=== PATIENT | female | born 1935 | race Caucasian/White ===

== ENCOUNTER 2016-12-07 12:05 | Emergency (ER) | payer MEDICARE, BC ==
[2016-12-07 12:20] VITALS: BP 138/57
[2016-12-07] MEDS ORDERED: Acetaminophen/HYDROcodone 325-5 MG Tab PO ONE (12:44)
--- NOTE | 2016-12-07 12:46 | EDM.PDOC ---
ED HPI GENERAL MEDICAL PROBLEM - General Chief Complaint: Chest Pain Stated Complaint: CHEST PAIN Time Seen by Provider: 12/07/16 12:31 Source of Information: Reports: Patient History Limitations: Reports: No Limitations - History of Present Illness INITIAL COMMENTS - FREE TEXT/NARRATIVE: Patient is a 81-year-old female who presents ED complaining of right-sided rib pain. Patient states yesterday she lost her balance with emptying the garbage. She fell against a brick wall causing some superficial abrasions to her hand and elbow on the right side. During the process she fell landing on the right side of her chest. Pain is constant with waxing waning in intensity. Described as a ache with intermittent sharpness. Pain is worsen with movement, deep breath , and palpation. She has been taking Tylenol and aspirin with little relief. She denies head neck or back pain, loss of conscious, numbness or tingling, short of breath, abdominal pain, nausea/vomiting, or any additional complaints. Treatments [employer]: Reports: Acetaminophen Right Chest Pain Score (Numeric/FACES): 6 - Related Data Allergies Allergy/AdvReac Type Severity Reaction Status Date / Time ibuprofen Allergy Rash Verified 12/07/16 12:21 Home Meds: Home Meds Alendronate [Fosamax] 70 mg PO Q7D 11/04/13 [History] Ca Cmb No.1/Vit D3/B-6/FA/B12 [Vitamin D3 1,000 Unit] 1 tab PO DAILY 11/04/13 [ History] Calcium Carb & Citrate/Vit D3 [Calcium + Vitamin D3 Caplet] 1,500 mg PO BID 04/19 [History] Multivit-Min/FA/Lycopene/Lut [Centrum Silver] 1 tab PO DAILY 11/04/13 [History] Raloxifene [Evista] 60 mg PO BEDTIME 11/04/13 [History] cycloSPORINE [Restasis] 1 drop EYEBOTH BID 11/04/13 [History] traMADol [Ultram] 50 mg PO Q4H PRN #20 tablet 12/07/16 [Rx] Past Medical History - Past Health History Medical/Surgical History: Denies Medical/Surgical History Musculoskeletal History: Reports: Osteoporosis Social & Family History - Tobacco Use Smoking Status *Q: Never Smoker Second Hand Smoke Exposure: No - Alcohol Use Days Per Week of Alcohol Use: 1 Number of Drinks Per Day: 1 Total Drinks Per Week: 1 - Recreational Drug Use Recreational Drug Use: No Drug Use in Last 12 Months: No ED ROS GENERAL - Review of Systems Review Of Systems: ROS reveals no pertinent complaints other than HPI. ED EXAM, GENERAL - Physical Exam Exam: See Below Exam Limited By: No Limitations General Appearance: Alert, WD/WN, No Apparent Distress Ears: Hearing Grossly Normal Nose: Normal Inspection Throat/Mouth: Normal Voice, No Airway Compromise Neck: Normal Inspection, Supple, Non-Tender, Full Range of Motion Respiratory/Chest: No Respiratory Distress, Lungs Clear, Normal Breath Sounds, No Accessory Muscle Use, Other (Tenderness to the righ axilla along the 9-12 ribs. ) Cardiovascular: Normal Peripheral Pulses, Regular Rate, Rhythm Peripheral Pulses: 2+: Radial (R) GI/Abdominal: Normal Bowel Sounds, Soft, Non-Tender, No Organomegaly, No Distention Back Exam: Normal Inspection, Full Range of Motion. No: Paraspinal Tenderness, Vertebral Tenderness Extremities: Normal Inspection, Normal Range of Motion, Non-Tender, No Pedal Edema, Normal Capillary Refill Neurological: Alert, Oriented, CN II-XII Intact, Normal Cognition, No Motor/ Sensory Deficits Psychiatric: Normal Affect, Normal Mood Skin Exam: Warm, Dry, Intact, Normal Color. No: Ecchymosis Course - Vital Signs Last Recorded V/S: Last Vital Signs Temp 98.5 F 12/07/16 12:18 Pulse 78 12/07/16 12:18 Resp 18 12/07/16 12:18 BP 138/57 L 12/07/16 12:18 Pulse Ox 100 12/07/16 12:18 - Orders/Labs/Meds Orders: Active Orders 24 hr Category Date Time Status Ribs 2V w Chest Rt [CR] Stat Exams 12/07/16 12:44 Taken Meds: Medications Discontinued Medications Generic Name Dose Route Start Last Admin Trade Name Freq PRN Reason Stop Dose Admin Hydrocodone Bitart/Acetaminophen 1 tab 12/07/16 12:44 12/07/16 12:51 [place] 325-5 Mg PO 12/07/16 12:45 1 tab ONETIME ONE Administration - Re-Assessments/Exams Free Text/Narrative Re-Assessment/Exam: Will obtain ribs series right side. Ordered norco 5-325mg PO x 1 for pain. 09/03/17 13:[address] Simmons. No acute findings present. Final interpretation pending. Pain has improved with the above therapies. Discharged home with instructions as documented. Departure - Departure Time of Disposition: 13:50 Disposition: Home, Self-Care 01 Condition: Good Clinical Impression: Right-sided chest wall pain - Discharge Information Prescriptions: traMADol [Ultram] 50 mg PO Q4H PRN #20 tablet PRN Reason: Pain (Severe 7-10) Referrals: Clarence Tucker Jr, MD [Primary Care Provider] - Forms: ED Department Discharge Additional Instructions: X-ray of the right ribs did not reveal any acute bony abnormalities. Etiology current complaint is a contusion thus requires symptomatically treatment only. This includes: Ice to affected area 4 times daily, 20 minutes in duration, do not place ice directly on the skin. Starting tomorrow can alternate this with warm compresses. Refrain from any activities that cause worsening pain. Continue to take deep breaths on intermittent basis. For pain take tramadol 40 mg every 4-6 hours with Tylenol 650 mg. Follow-up with PCP as needed. Return to ED for any new or worsening symptoms. - My Orders Last 24 Hours: My Active Orders 12/07/16 12:44 Ribs 2V w Chest Rt [CR] Stat - Assessment/Plan Last 24 Hours: My Active Orders 12/07/16 12:44 Ribs 2V w Chest Rt [CR] Stat
--- NOTE | 2016-12-08 17:59 | CR ---
Chest and right ribs: Frontal view of the chest was obtained as well as 3 views of the right ribs. Comparison: No prior chest x-ray Heart size is normal. Tortuous thoracic aorta is seen. Lungs are clear with no acute infiltrates. Slight scoliosis is present within the spine. No discrete right sided rib abnormality is seen. Impression: 1. Incidental findings. Nothing acute is identified on frontal chest x-ray. No discrete rib abnormality is seen although nondisplaced rib fracture could easily be missed. Diagnostic code #2
== END 2016-12-07 14:05 | disposition home or self-care (01) ==
LOC: JD.ED 12:05
DX: R07.89 Other chest pain (principal); Z88.6 Allergy status to analgesic agent; Z79.899 Other long term (current) drug therapy
CPT/HCPCS: 71101; 99284; A9270; 99283

== ENCOUNTER 2017-12-23 10:45 | Emergency (ER) | payer MEDICARE, BC ==
--- NOTE | 2017-12-23 11:01 | EDM.PDOC ---
ED HPI GENERAL MEDICAL PROBLEM - General Chief Complaint: General Stated Complaint: VISUAL DISTURBANCE YESTERDAY Time Seen by Provider: 12/23/17 11:00 Source of Information: Reports: Patient History Limitations: Reports: No Limitations - History of Present Illness INITIAL COMMENTS - FREE TEXT/NARRATIVE: 82 -year-old female presents for evaluation and treatment of vision changes. Patient reports yesterday around 1100 she was at her [employer] workout class. She was near the end of her class. She states that her eyes seem to have fidgeting, "goggly" vision. Lasted only a few seconds. She states that she sat down. Rested for a few moments and then return to her normal activities. She denies any double vision or blurry vision. She denies any pain associated with this. No episodes since this episode yesterday. She denies any headaches, numbness or tingling in extremities, weakness in extremities, nausea, vomiting, dizziness, chest pain or shortness of breath. Patient denies any recent cough or cold symptoms. No recent fevers, chills, cough or ear pain. She does wear glasses and has a history of glaucoma. She actually has an appointment with her eye doctor tomorrow. She contacted her primary care provider's office who instructed her to come to the ER today. No history of any cardiac or CVA problems. Onset: Sudden - Related Data Allergies Allergy/AdvReac Type Severity Reaction Status Date / Time ibuprofen Allergy Rash Verified 12/23/17 10:55 Home Meds: Home Meds Alendronate [Fosamax] 70 mg PO Q7D 11/04/13 [History] Ca Cmb No.1/Vit D3/B-6/FA/B12 [Vitamin D3 1,000 Unit] 1 tab PO DAILY 11/04/13 [ History] Calcium Carb & Citrate/Vit D3 [Calcium + Vitamin D3 Caplet] 1,500 mg PO BID 04/19 [History] Multivit-Min/FA/Lycopene/Lut [Centrum Silver] 1 tab PO DAILY 11/04/13 [History] Raloxifene [Evista] 60 mg PO BEDTIME 11/04/13 [History] cycloSPORINE [Restasis] 1 drop EYEBOTH BID 11/04/13 [History] Past Medical History - Past Health History Medical/Surgical History: Denies Medical/Surgical History HEENT History: Reports: Impaired Vision Musculoskeletal History: Reports: Osteoporosis, Other (See Below) Other Musculoskeletal History: broken wrist Social & Family History - Family History Family Medical History: Noncontributory - Tobacco Use Smoking Status *Q: Never Smoker - Caffeine Use Caffeine Use: Reports: None - Recreational Drug Use Recreational Drug Use: No ED ROS GENERAL - Review of Systems Review Of Systems: See Below Constitutional: Denies: Fever, Chills, Weakness HEENT: Reports: Vision Change (temporary "fidgiting" vision; no blurry vision or double vision, no loss of vision, no flashes or floaters). Denies: Ear Pain , Throat Pain Respiratory: Denies: Shortness of Breath Cardiovascular: Denies: Chest Pain GI/Abdominal: Denies: Abdominal Pain, Nausea, Vomiting Neurological: Denies: Headache, Numbness, Tingling, Weakness ED EXAM, GENERAL - Physical Exam Exam: See Below Exam Limited By: No Limitations General Appearance: Alert, WD/WN, No Apparent Distress Eye Exam: Bilateral Eye: EOMI, Normal Inspection (No nystagmus), PERRL Ears: Normal External Exam, Normal Canal, Hearing Grossly Normal, Normal TMs Nose: Normal Inspection Throat/Mouth: Normal Inspection, Normal Voice, No Airway Compromise Neck: Normal Inspection Respiratory/Chest: No Respiratory Distress, Lungs Clear, Normal Breath Sounds Cardiovascular: Normal Peripheral Pulses, Regular Rate, Rhythm, No Murmur Peripheral Pulses: 2+: Radial (L), Radial (R), Posterior Tibial (L), Posterior Tibial (R) GI/Abdominal: Soft, Non-Tender Neurological: Alert, Oriented, Normal Cognition, Other (Normal finger to nose testing, normal [id number] testing, no pronator drift. Instructional Design Manager strength, dorsiflexion and plantar flexion 5 out of 5 bilaterally. Smile is symmetric. No slurred speech.) Psychiatric: Normal Affect, Normal Mood Skin Exam: Warm, Dry, Normal Color Course - Vital Signs Last Recorded V/S: Last Vital Signs Temp 97.8 F 12/23/17 13:00 Pulse 78 12/23/17 13:00 Resp 18 12/23/17 13:00 BP 121/68 12/23/17 13:00 Pulse Ox 99 12/23/17 13:00 - Orders/Labs/Meds Labs: Laboratory Tests 12/23/17 12/23/17 Range/Units 11:45 11:45 WBC 7.42 (3.98-10.04) K/mm3 RBC 4.37 (3.98-5.22) M/mm3 Hgb 13.5 (11.2-15.7) gm/L Hct 41.7 (34.1-44.9) % MCV 95.4 H (79.4-94.8) fl MCH 30.9 (25.6-32.2) pg MCHC 32.4 (32.2-35.5) g/dl RDW Std Deviation 44.4 (36.4-46.3) fL Plt Count 228 (182-369) K/mm3 MPV 11.2 (9.4-12.3) fl Neut % (Auto) 58.8 (34.0-71.1) % Lymph % (Auto) 29.4 (19.3-51.7) % [place] % (Auto) 9.0 (4.7-12.5) % Eos % (Auto) 1.9 (0.7-5.8) Baso % (Auto) 0.8 (0.1-1.2) % Neut # (Auto) 4.36 (1.56-6.13) K/mm3 Lymph # (Auto) 2.18 (1.18-3.74) K/mm3 [place] # (Auto) 0.67 H (0.24-0.36) K/mm3 Eos # (Auto) 0.14 (0.04-0.36) K/mm3 Baso # (Auto) 0.06 (0.01-0.08) K/mm3 Sodium 139 (136-145) mEq/L Potassium 3.7 (3.5-5.1) mEq/L Chloride 106 (98-107) mEq/L Carbon Dioxide 28 (21-32) mEq/L Anion Gap 8.7 (5-15) BUN 11 (7-18) mg/dL Creatinine 0.7 (0.55-1.02) mg/dL Est Cr Clr Drug Dosing 55.35 mL/min Estimated GFR (MDRD) > 60 (>60) mL/min BUN/Creatinine Ratio 15.7 (14-18) Glucose 105 (83-115) mg/dL Calcium 8.5 (8.5-10.1) mg/dL Total Bilirubin 0.2 (0.2-1.0) mg/dL AST 18 (15-37) U/L ALT 15 (14-59) U/L Alkaline Phosphatase 57 (46-116) U/L Total Protein 6.3 L (6.4-8.2) g/dl Albumin 3.4 (3.4-5.0) g/dl Globulin 2.9 gm/dL Albumin/Globulin Ratio 1.2 (1-2) - Radiology Interpretation Free Text/Narrative:: Head CT Technique: Multiple axial sections through the brain were obtained. Intravenous contrast was not utilized. Comparison: No prior intracranial imaging is available. Findings: Ventricles along with basal cisterns and sulci with convexities are moderately prominent. Very minimal diminished density is noted within the periventricular white matter compatible with small vessel ischemic demyelination change. No other abnormal parenchymal densities are seen. No evidence of intracranial hemorrhage. No midline shift or mass effect is seen. Bone window settings were reviewed which shows the visualized sinuses to appear clear. No acute calvarial abnormality is appreciated. Impression: 1. Mild senescent change as noted above. No acute intracranial abnormality is identified. - Re-Assessments/Exams Free Text/Narrative Re-Assessment/Exam: 12/23/17 12:50 Discussed the case with Dr. Simmons. Buckner work-up and plan was appropriate. Possibly vestibular in origin. Recommended follow-up with eye doctor as planned. Discussed the labs and imaging with the patient. Will discharge home today. Discharge instructions as documented. Departure - Departure Time of Disposition: 12:55 Disposition: Home, Self-Care 01 Condition: Fair Clinical Impression: Vision abnormalities - Discharge Information *PRESCRIPTION DRUG MONITORING PROGRAM REVIEWED*: No *COPY OF PRESCRIPTION DRUG MONITORING REPORT IN PATIENT MARIA TERESA: No Referrals: Clarence Tucker Jr, MD [Primary Care Provider] - Forms: ED Department Discharge Additional Instructions: Recommend 81mg aspirin daily. Follow-up with eye doctor tomorrow as planned. Rest. Make sure you are drinking plenty of fluids. Follow-up with your PCP within 2 weeks for a recheck of your symptoms. Please return to the ER should your symptoms change or worsen.
--- NOTE | 2017-12-23 11:50 | CT ---
Head CT Technique: Multiple axial sections through the brain were obtained. Intravenous contrast was not utilized. Comparison: No prior intracranial imaging is available. Findings: Ventricles along with basal cisterns and sulci with convexities are moderately prominent. Very minimal diminished density is noted within the periventricular white matter compatible with small vessel ischemic demyelination change. No other abnormal parenchymal densities are seen. No evidence of intracranial hemorrhage. No midline shift or mass effect is seen. Bone window settings were reviewed which shows the visualized sinuses to appear clear. No acute calvarial abnormality is appreciated. Impression: 1. Mild senescent change as noted above. No acute intracranial abnormality is identified. Diagnostic code #2
[2017-12-23 13:04] VITALS: BP 121/68
== END 2017-12-23 13:02 | disposition home or self-care (01) ==
LOC: JD.ED 10:45
DX: H53.149 Visual discomfort, unspecified (principal); Z88.8 Allergy status to other drugs, medicaments and biological substances; Z79.899 Other long term (current) drug therapy
CPT/HCPCS: 36415; 70450; 70450-26; 80053; 85025; 99284-25

== ENCOUNTER 2020-03-25 15:39 | Emergency (ER) | payer MEDICARE, BC ==
[2020-03-25 15:47] VITALS: BP 146/80; PULSE 72
--- NOTE | 2020-03-25 17:56 | EDM.PDOC ---
ED HPI GENERAL MEDICAL PROBLEM - General Chief Complaint: Head Injury Stated Complaint: [facility] Time Seen by Provider: 03/25/20 15:45 Source of Information: Reports: Patient, RN Notes Reviewed History Limitations: Reports: No Limitations - History of Present Illness INITIAL COMMENTS - FREE TEXT/NARRATIVE: Patient is an 84-year-old female presenting to the emergency department with complaints of a head injury. She states that she was walking on the sidewalk and missed stepped causing her to fall. When she fell, she hit the right side of her face and nose. She also states that she has an abrasion to her right knee as well as some skin tears on the knuckles of her right hand. She was able to walk on her right knee without difficulty. States that is not painful to move it. She has some mild right chest wall discomfort. She did not lose consciousness. Denies headache. States that she has some mild pain to her right knee but she is able to move it without difficulty. She also has a minimal pain to her right wrist with 2 skin tears noted to the knuckles of her right hand. Patient is not on blood thinners. - Related Data Allergies Allergy/AdvReac Type Severity Reaction Status Date / Time ibuprofen Allergy Rash Verified 03/25/20 15:47 Home Meds: Home Meds Alendronate [Fosamax] 70 mg PO WE 11/04/13 [History] Calcium Carb & Citrate/Vit D3 [Calcium + Vitamin D3 Caplet] 1,500 mg PO BID 11/04/13 [History] Multivit-Min/FA/Lycopene/Lut [Centrum Silver] 1 tab PO DAILY 11/04/13 [History] Raloxifene [Evista] 60 mg PO BEDTIME 11/04/13 [History] cycloSPORINE [Restasis] 1 drop EYEBOTH BID 11/04/13 [History] Acetaminophen [Non-Aspirin] 650 mg PO Q6H PRN 03/25/20 [History] Brimonidine Tartrate/Timolol [Combigan 0.2%-0.5% Eye Drops] 1 drop EYEBOTH BID 03/25/20 [History] C,E,Zinc,Copper 11/Mjjko7u/Lut [Ocuvite Adult 50 Plus Softgel] 1 tab PO DAILY 03/25/20 [History] Calcium Carbonate [Tums] 2 tab PO Q4H PRN 03/25/20 [History] Fish Oil/[place]-3 Fatty Acids [Fish Oil 1,000 MG] 1,000 mg PO DAILY 03/25/20 [History] Sertraline [Zoloft] 50 mg PO DAILY 03/25/20 [History] busPIRone [Buspar] 5 mg PO BID 03/25/20 [History] calcium polycarbophiL [Equalactin] 625 mg PO DAILY PRN 03/25/20 [History] Past Medical History - Past Health History Medical/Surgical History: Denies Medical/Surgical History HEENT History: Reports: Impaired Vision Musculoskeletal History: Reports: Osteoporosis, Other (See Below) Other Musculoskeletal History: broken wrist Social & Family History - Family History Family Medical History: No Pertinent Family History - Tobacco Use Tobacco Use Status *Q: Never Tobacco User Second Hand Smoke Exposure: No - Caffeine Use Caffeine Use: Reports: Coffee - Recreational Drug Use Recreational Drug Use: No ED ROS GENERAL - Review of Systems Review Of Systems: See Below Constitutional: Reports: No Symptoms HEENT: Reports: Other. Denies: Eye Pain, Vision Change Respiratory: Reports: No Symptoms Cardiovascular: Reports: No Symptoms Endocrine: Reports: No Symptoms GI/Abdominal: Reports: No Symptoms : Reports: No Symptoms Musculoskeletal: Reports: Other (mild right sided chest wall tenderness) Skin: Reports: Other (Pain and abrasions to the right side of the face and nose. Skin tears to the right hand. Abrasion to the right knee.) ED EXAM, HEAD INJURY - Physical Exam Exam: See Below General Appearance: Alert, WD/WN, No Apparent Distress Head: Active Bleeding (Scant amount from superficial abrasions and 1 cm skin tear below the right eye.), Facial Abrasions (Right forehead and cheekbone), F acial Ecchymosis (Periorbital), Facial Swelling (Right forehead) Nexus Criteria: No: Posterior, Midline Cervical Tenderness, Evidence of Intoxication, Altered Level of Consciousness, Focal Neurological Deficit, Painful Distraction Injuries Nose: Nasal Deformity, Nasal Swelling, Nasal Tenderness, Nasal Ecchymosis, Dried Blood. No: Septal Hematoma, Active Bleeding Neck: Non-Tender, Full Range of Motion, Normal Alignment, Normal Inspection Respiratory: No Respiratory Distress, Lungs Clear, Normal Breath Sounds, No Accessory Muscle Use, Other (Mild right-sided chest wall tenderness to ribs 6 through 10) Cardiovascular: Normal Peripheral Pulses, Regular Rate, Rhythm, No Edema, No Gallop, No JVD, No Murmur, No Rub GI/Abdominal Exam: Normal Bowel Sounds, Soft, Non-Tender, No Organomegaly, No Distention, No Abnormal Bruit, No Mass Back Exam: Full Range of Motion, Normal Inspection, NT Extremities: Other (Superficial abrasion to the right knee. Full range of motion. No edema or deformity noted. 2 skin tears to the MCP joints of the right fourth and fifth fingers. Mild tenderness to palpation over the right wrist. She does have full range of motion of the joint.) Neurologic: skin lap bonder II-XII nml As Tested, No Motor/Sensory Deficits, Alert, Normal Mood/Affect, Oriented x 3 - [place] Coma Score Best Eye Response ([place]): (4) Open Spontaneously Best Verbal Response ([place]): (5) Oriented Best Motor Response ([place]): (6) Obeys Commands Course - Vital Signs Last Recorded V/S: Last Vital Signs Temp 97 F 03/25/20 15:43 Pulse 72 03/25/20 15:43 Resp 16 03/25/20 15:43 BP 146/80 H 03/25/20 15:43 Pulse Ox 100 03/25/20 15:43 - Orders/Labs/Meds Orders: Active Orders 24 hr Category Date Time Status Head wo Cont [CT] Stat Exams 03/25/20 15:54 Taken Max Facial Sinus wo Cont [CT] Stat Exams 03/25/20 15:54 Taken Ribs 3V w Chest Bi [CR] Stat Exams 03/25/20 16:36 Taken Wrist Comp Min 3V Rt [CR] Stat Exams 03/25/20 16:39 Taken - Re-Assessments/Exams Free Text/Narrative Re-Assessment/Exam: She is an 84-year-old female presenting to the emergency department with complaints of head injury related to a fall. She states that she lost her footing and fell on the right side of her face. She also has some mild right- sided chest wall tenderness and ribs 6 through 10, as well as some tenderness to her right wrist. She states that she has a plate in her right wrist. We will x-ray that to ensure that there is no fracture. I also ordered a bilateral rib with chest x-ray, head CT, maxillofacial CT. Patient has a number of skin tears on her face. 2 of them will be Steri-Stripped. The other wounds will have nursing staff clean and apply antibiotic ointment. 03/25/20 18:24 CT scan of the head shows no acute abnormalities. There are no acute fractures visualized on the rib x-ray. Maxillofacial CT shows bilateral and slightly displaced nasal bone fractures, right frontal scalp hematoma, and a small osteoma within the left ethmoid sinus. Patient's wounds have been cleansed. 0.5 cm skin tear below the right eye was closed with 3 Steri-Strips. 0.5 cm skin tear on the forehead was closed with 2 Steri-Strips. We will have nursing staff get her up to walk and see how she does. 03/25/20 18:37 Patient is able to ambulate without pain or difficulty. We will discharge her back to [facility] with instructions to follow-up with Dr. Nj, ENT, with regards to her nasal fractures. Discharge instructions as documented. Departure - Departure Time of Disposition: 18:38 Disposition: Home, Self-Care 01 Condition: Good Clinical Impression: Facial contusion Qualifiers: Encounter type: initial encounter Qualified Code(s): S00.83XA - Contusion of other part of head, initial encounter Nasal bones, closed fracture Qualifiers: Encounter type: initial encounter Qualified Code(s): S02.2XXA - Fracture of nasal bones, initial encounter for closed fracture - Discharge Information *PRESCRIPTION DRUG MONITORING PROGRAM REVIEWED*: No *COPY OF PRESCRIPTION DRUG MONITORING REPORT IN PATIENT MARIA TERESA: No Instructions: Nasal Fracture, [id number], Facial or Scalp Contusion, [id number] Referrals: Clarence Tucker Jr, MD [Primary Care Provider] - Abram Nj MD [Ordering Only Provider] - Forms: ED Department Discharge Additional Instructions: You were seen in the emergency department today for evaluation after falling and hitting the right side your face on the ground. Work-up included CT scan of your head as well as your facial bones, x-ray of your right wrist, and rib x- rays. Results of your imaging shows that you have a fracture of your nasal bones. Your head CT was normal. Right wrist x-ray showed no fractures. And you have no new rib fractures. The rib x-ray did show 2 old rib fractures. Recommend that you clean your wounds with normal soap and water twice daily. The Steri-Strips that were applied to the skin tears on your face will fall off over the next few days. Recommend ice to your forehead intermittently for the next few days to help with the swelling. You may use Tylenol as needed for discomfort. A referral has been sent to Dr. Nj, ENT, for evaluation with regards to her nasal fracture. Recommend that you call his office tomorrow morning to set up an appointment. You may discuss if he travels to [place] at any time. I would also recommend follow-up with your primary care provider on Thursday of this week for reevaluation. If you should experience any new or worsening symptoms of concern, please not hesitate to return to the emergency department for reevaluation. Sepsis Event Note (ED) - Evaluation Sepsis Screening Result: No Definite Risk - Focused Exam Vital Signs: Vital Signs Temp Pulse Resp BP Pulse Ox 03/25/20 15:43 97 F 72 16 146/80 H 100 - My Orders Last 24 Hours: My Active Orders 03/25/20 15:54 Head wo Cont [CT] Stat Max Facial Sinus wo Cont [CT] Stat 03/25/20 16:36 Ribs 3V w Chest Bi [CR] Stat 03/25/20 16:39 Wrist Comp Min 3V Rt [CR] Stat - Assessment/Plan Last 24 Hours: My Active Orders 03/25/20 15:54 Head wo Cont [CT] Stat Max Facial Sinus wo Cont [CT] Stat 03/25/20 16:36 Ribs 3V w Chest Bi [CR] Stat 03/25/20 16:39 Wrist Comp Min 3V Rt [CR] Stat
--- NOTE | 2020-03-26 10:36 | CR ---
Right wrist: 4 views of the right wrist were obtained. Comparison: No prior wrist exam is available. Plate and screws affix an old healed fracture within the distal radius. Two calcifications are seen anteriorly which are believed to be old. 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 Old ununited fracture which is noted within the ulnar styloid process. No acute abnormality is otherwise seen. Impression: 1. Old fractures. Degenerative change. 2. Nothing acute is definitely appreciated. Diagnostic code #2
--- NOTE | 2020-03-26 13:36 | CT ---
Head CT Technique: Multiple axial sections through the brain were obtained. Intravenous contrast was not utilized. Comparison: Prior head CT study of 12/23/17. Findings: Ventricles along with basal cisterns and sulci over the convexities are prominent. Minimal areas of diminished density are noted within the periventricular white matter compatible with small vessel ischemic demyelination change. 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 Bone window settings were obtained which shows minimal calcification within the carotid siphon. There is diffuse soft tissue swelling within the orbit and supraorbital regions. Several soft tissue collections of air are seen presumably due to soft tissue injury. No acute calvarial finding is appreciated. Visualized paranasal sinuses show nothing acute. Visualized mastoid sinuses also show nothing acute. Impression: 1. Soft tissue swelling around and superior to the orbit. Small amount of soft tissue air is seen compatible with skin injury. 2. Senescent change as noted above. 3. No acute intracranial abnormality is appreciated. Diagnostic code #3 I agree with preliminary report from [facility], finalized on 03/25/20, 5:32 PM STUNT DOUBLE
--- NOTE | 2020-03-26 13:43 | CT ---
CT facial bones Technique: Multiple axial sections through the facial bones were obtained. Reconstructed coronal and axial images were obtained. Findings: Visualized mastoid sinuses show nothing acute. Visualized paranasal sinuses also show nothing acute. Nasal bone fracture is seen which is slightly comminuted on the left side. No additional fracture is appreciated. Soft tissue swelling seen within the right cheek, around the right orbit and superior to the right orbit. Small amount of soft tissue air is noted compatible with skin injury. Degenerative change partially visualized within the cervical spine. Minimal osteoma noted within the left ethmoid sinus. Impression: 1. Nasal bone fracture which is slightly comminuted on the left side. 2. Soft tissue swelling around the right side with soft tissue air above the right orbit compatible with soft tissue injury. 3. No other acute finding is appreciated. Diagnostic code #3 I agree with preliminary report from [facility], finalized on 03/25/20, 5:37 PM NIGHT SHIFT MANAGER
--- NOTE | 2020-03-26 13:44 | CR ---
Chest and bilateral ribs: AP view of the chest was obtained as well as 2 views of both ribs. Healed fractures are seen within the right 10th and 11th rib. Calluses present. Lungs are clear with no acute parenchymal change. No definite acute rib fracture is appreciated. Impression: 1. To healed rib fractures. 2. No definite acute rib fracture is appreciated. 3. Nothing acute seen on frontal chest x-ray. Diagnostic code #2 I agree with preliminary report from [facility], finalized on 03/25/20, 6:51 PM LEATHER FITTER
== END 2020-03-25 19:00 | disposition home or self-care (01) ==
LOC: JD.ED 15:39
DX: S02.2XXA Fracture of nasal bones, initial encounter for closed fracture (principal); S01.81XA Laceration without foreign body of other part of head, initial encounter; S61.411A Laceration without foreign body of right hand, initial encounter; S80.211A Abrasion, right knee, initial encounter; R07.89 Other chest pain; Z88.6 Allergy status to analgesic agent; Z79.899 Other long term (current) drug therapy; W10.9XXA Fall (on) (from) unspecified stairs and steps, initial encounter; Y93.01 Activity, walking, marching and hiking; Y92.480 Sidewalk as the place of occurrence of the external cause
CPT/HCPCS: 70450; 70450-26; 70486; 70486-26; 71111; 71111-26; 73110-26-RT; 73110-RT; 99283; 99284-25

== ENCOUNTER 2021-07-12 09:16 | Emergency (ER) | payer MEDICARE, BC ==
[2021-07-12] MEDS ORDERED: Sodium Chloride 0.9% 1,000 ML IV ONE (09:17)
[2021-07-12] MEDS ORDERED: Sodium Bicarbonate 8.4% 50 MEQ/50 ML Syringe ONE ×3 (09:30)
[2021-07-12] MEDS ORDERED: EPINEPHrine 1:10,000 1 MG/10 ML Syringe ONE ×3 (09:30)
[2021-07-12] MEDS ORDERED: Amiodarone 150 MG/3 ML SDV ONE (09:30)
== END 2021-07-12 12:30 | disposition expired ==
LOC: JD.ED 09:16
DX: I46.9 Cardiac arrest, cause unspecified (principal); Z88.8 Allergy status to other drugs, medicaments and biological substances
CPT/HCPCS: 31500; 36415; 80053; 84484; 85025; 92950; 96374; 96375; 99285; J0171; J0282; J7060; 99291; J7030